=== PATIENT | female | born 1955 | race Caucasian/White ===

== ENCOUNTER → 2016-11-19 | Outpatient (CLI) | payer BC, OTHER ==
[~2016-11-19] VITALS: Ht 157.5 cm; Wt 54.0 kg
[~2016-11-19] MED LIST: CLAR1TAB2 PO; COMBAER6 INH; FLON1SPR; NS 1,000 ML IV SCH; PROL60SO SC; PROPOFOL 200 MG/20 ML VIAL As Ordered ONE; ZYRT10CA PO
--- NOTE | 2016-11-19 11:18 | ROOR ---
Patient Name: Yuliana Mayberry Procedure Date: 11/19/2016 10:59 AM Date of : 1955 Age: 60 Room: [facility] Gender: Female Note Status: Finalized Procedure: Colonoscopy to Cecum Indications: Screening for colorectal malignant neoplasm Providers: Bertram Nails MD Referring MD: Hope Grossman Requesting Provider: Medicines: Monitored Anesthesia Care Complications: No immediate complications. Procedure: Pre-Anesthesia Assessment: - The heart rate, respiratory rate, oxygen saturations, blood pressure, adequacy of pulmonary ventilation, and response to care were monitored throughout the procedure. The Colonoscope was introduced through the anus and advanced to the cecum, identified by appendiceal orifice and ileocecal valve. The colonoscopy was performed without difficulty. The patient tolerated the procedure well. The quality of the bowel preparation was excellent. Findings: The perianal and digital rectal examinations were normal. Non-bleeding internal hemorrhoids were found during retroflexion. The hemorrhoids were small and Grade I (internal hemorrhoids that do not prolapse). Scattered small-mouthed diverticula were found in the recto-sigmoid colon, sigmoid colon and descending colon. The exam was otherwise without abnormality on direct and retroflexion views. Impression: - Non-bleeding internal hemorrhoids. - Diverticulosis in the recto-sigmoid colon, in the sigmoid colon and in the descending colon. - The examination was otherwise normal on direct and retroflexion views. - No specimens collected. - The exam was otherwise normal to the cecum. Recommendation: - Patient has a contact number available for emergencies. The signs and symptoms of potential delayed complications were discussed with the patient. Return to normal activities tomorrow. Written discharge instructions were provided to the patient. - High fiber diet. - Discharge patient to home. - Continue present medications. - Repeat colonoscopy in 10 years for screening purposes. - Return to referring physician. - The findings and recommendations were discussed with the patient's family. Bertram Nails MD Bertram Nails MD 11/19/2016 11:18:02 AM This report has been signed electronically. Number of Addenda: 0 Note Initiated On: 11/19/2016 10:59 AM Estimated Blood Loss: Estimated blood loss: none.
[2016-11-19 11:35] VITALS: BP 145/77
== END | disposition home or self-care (01) ==
LOC: M OPP 10:33
PROVIDERS: ATTEND Internal Medicine Gastroenterology
DX: Z12.11 Encounter for screening for malignant neoplasm of colon (principal); K64.0 First degree hemorrhoids; K57.30 Diverticulosis of large intestine without perforation or abscess without bleeding; J44.9 Chronic obstructive pulmonary disease, unspecified; F17.200 Nicotine dependence, unspecified, uncomplicated; F17.228 Nicotine dependence, chewing tobacco, with other nicotine-induced disorders; Z79.899 Other long term (current) drug therapy
CPT/HCPCS: 99156; G0121

== ENCOUNTER → 2017-08-13 | Outpatient (REF) | payer OTHER ==
[~2017-08-13] MED LIST changes: -NS 1,000 ML IV SCH; -PROPOFOL 200 MG/20 ML VIAL As Ordered ONE
[2017-08-13 12:59] LABS: BASO # 0.1 10^3/uL (0.0-0.2); BASO % 1.1 % (0.0-1.0); EOS # 0.3 10^3/uL (0.0-0.50); EOS % 3.7 % (0.0-3.0); IMMATURE GRANULOCYTE % 0.1 % (0-0); LYMPH # 1.9 10^3/uL (1.5-4.5); LYMPH % 23.4 % (24.0-44.0); MEAN CORPUSCULAR HEMOGLOBIN 34.4 pg (27.0-33.0); MEAN CORPUSCULAR HGB CONC 34.3 g/dl (32.0-36.5); MEAN CORPUSCULAR VOLUME 100.2 fl (80.0-96.0); MONO # 0.6 10^3/uL (0.0-0.8); MONO % 7.1 % (0.0-5.0); NEUTROPHILS # 5.3 10^3/uL (1.8-7.7); NEUTROPHILS % 64.6 % (36.0-66.0); PLATELET COUNT, AUTOMATED 222 10^3/uL (150-450); RED CELL DISTRIBUTION WIDTH 12.1 % (11.5-14.5); WHITE BLOOD COUNT 8.2 10^3/uL (4.0-10.0)
[2017-08-13 13:38] LABS: ALBUMIN/GLOBULIN RATIO 1.25 (1.00-1.93); ALKALINE PHOSPHATASE 75 U/L (45-117); ALT/SGPT 28 U/L (12-78); ANION GAP 6 MEQ/L (8-16); AST/SGOT 22 U/L (7-37); BILIRUBIN,TOTAL 0.8 MG/DL (0.2-1.0); BLOOD UREA NITROGEN 9 MG/DL (7-18); CALCIUM LEVEL 9.3 MG/DL (8.8-10.2); CARBON DIOXIDE LEVEL 31 MEQ/L (21-32); CHLORIDE LEVEL 104 MEQ/L (98-107); CHOLESTEROL LEVEL 220 MG/DL (<200); CREATININE FOR GFR 0.69 MG/DL (0.55-1.02); FREE T4 1.11 NG/DL (0.76-1.46); GLOMERULAR FILTRATION RATE > 60.0 (>45); GLUCOSE, FASTING 82 MG/DL (80-110); POTASSIUM SERUM 4.2 MEQ/L (3.5-5.1); SODIUM LEVEL 141 MEQ/L (136-145); TOTAL PROTEIN 7.2 GM/DL (6.4-8.2); TRIGLYCERIDES LEVEL 57 MG/DL (<150)
== END ==
LOC: M SFHCPLAZ 08:10
PROVIDERS: ATTEND Physician Assistant Medical
DX: E78.00 Pure hypercholesterolemia, unspecified (principal); J30.9 Allergic rhinitis, unspecified; M81.0 Age-related osteoporosis without current pathological fracture

== ENCOUNTER → 2017-10-21 | Outpatient (REF) | payer OTHER ==
[2017-10-21 11:54] LABS: BASO # 0.1 10^3/uL (0.0-0.2); BASO % 0.8 % (0.0-1.0); EOS # 0.3 10^3/uL (0.0-0.50); EOS % 4.6 % (0.0-3.0); HEMATOCRIT 39.7 % (36.0-47.0); HEMOGLOBIN 13.9 g/dl (12.0-16.0); IMMATURE GRANULOCYTE % 0.1 % (0-0); LYMPH # 2.4 10^3/uL (1.5-4.5); LYMPH % 32.2 % (24.0-44.0); MEAN CORPUSCULAR HEMOGLOBIN 34.4 pg (27.0-33.0); MEAN CORPUSCULAR VOLUME 98.3 fl (80.0-96.0); MONO # 0.6 10^3/uL (0.0-0.8); MONO % 7.5 % (0.0-5.0); NEUTROPHILS % 54.8 % (36.0-66.0); PLATELET COUNT, AUTOMATED 209 10^3/uL (150-450); RED BLOOD COUNT 4.04 10^6/uL (4.00-5.40); RED CELL DISTRIBUTION WIDTH 11.9 % (11.5-14.5); WHITE BLOOD COUNT 7.4 10^3/uL (4.0-10.0)
[2017-10-21 12:26] LABS: ALBUMIN 4.2 GM/DL (3.2-5.2); ALKALINE PHOSPHATASE 76 U/L (45-117); ALT/SGPT 29 U/L (12-78); ANION GAP 8 MEQ/L (8-16); AST/SGOT 22 U/L (7-37); BILIRUBIN,TOTAL 0.7 MG/DL (0.2-1.0); BLOOD UREA NITROGEN 9 MG/DL (7-18); CARBON DIOXIDE LEVEL 27 MEQ/L (21-32); CHLORIDE LEVEL 107 MEQ/L (98-107); CHOLESTEROL LEVEL 154 MG/DL (<200); CHOLESTEROL RISK RATIO 2.264 (<5); CREATININE FOR GFR 0.67 MG/DL (0.55-1.30); GLOMERULAR FILTRATION RATE > 60.0 (>45); GLUCOSE, FASTING 92 MG/DL (70-100); HDL CHOLESTEROL 68 MG/DL (>40); LDL CHOLESTEROL 72.6 MG/DL (<100); NON-HDL-C 86 MG/DL; POTASSIUM SERUM 4.3 MEQ/L (3.5-5.1); SODIUM LEVEL 142 MEQ/L (136-145); TRIGLYCERIDES LEVEL 67 MG/DL (<150)
== END ==
LOC: M SFHCPLAZ 09:16
DX: J30.9 Allergic rhinitis, unspecified (principal); E78.00 Pure hypercholesterolemia, unspecified
CPT/HCPCS: 80053

== ENCOUNTER → 2017-12-09 | Outpatient (REF) | payer OTHER | LOC: M SFHCWAGY 15:33 | DX: Z12.4 Encounter for screening for malignant neoplasm of cervix (principal) ==

== ENCOUNTER → 2017-12-09 | Outpatient (CLI) | payer BC | LOC: M WHC 14:58 | DX: Z12.31 Encounter for screening mammogram for malignant neoplasm of breast (principal) | CPT/HCPCS: 77067 ==

== ENCOUNTER → 2018-08-23 | Outpatient (CLI) | payer BC, OTHER | LOC: M RAD 12:40 | DX: Z12.2 Encounter for screening for malignant neoplasm of respiratory organs (principal); F17.218 Nicotine dependence, cigarettes, with other nicotine-induced disorders; J84.10 Pulmonary fibrosis, unspecified; Z98.82 Breast implant status | CPT/HCPCS: G0297 ==

== ENCOUNTER → 2018-08-26 | Outpatient (REF) | payer OTHER ==
[2018-08-26 12:11] LABS: BASO # 0.1 10^3/uL (0.0-0.2); BASO % 0.9 % (0.0-1.0); EOS # 0.2 10^3/uL (0.0-0.50); EOS % 2.5 % (0.0-3.0); HEMOGLOBIN 14.6 g/dl (12.0-15.5); IMMATURE GRANULOCYTE % 0.4 % (0-3.0); LYMPH # 1.8 10^3/uL (1.5-4.5); LYMPH % 24.5 % (24.0-44.0); MEAN CORPUSCULAR HEMOGLOBIN 34.3 pg (27.0-33.0); MEAN CORPUSCULAR HGB CONC 34.8 g/dl (32.0-36.5); MEAN CORPUSCULAR VOLUME 98.6 fl (80.0-96.0); MONO # 0.6 10^3/uL (0.0-0.8); MONO % 8.6 % (0.0-5.0); NEUTROPHILS # 4.7 10^3/uL (1.8-7.7); NEUTROPHILS % 63.1 % (36.0-66.0); PLATELET COUNT, AUTOMATED 210 10^3/uL (150-450); RED BLOOD COUNT 4.26 10^6/uL (4.00-5.40); RED CELL DISTRIBUTION WIDTH 12.4 % (11.5-14.5); WHITE BLOOD COUNT 7.5 10^3/uL (4.0-10.0)
[2018-08-26 12:25] LABS: ALBUMIN 4.1 GM/DL (3.2-5.2); ALBUMIN/GLOBULIN RATIO 1.32 (1.00-1.93); ALKALINE PHOSPHATASE 68 U/L (45-117); ALT/SGPT 23 U/L (12-78); ANION GAP 6 MEQ/L (8-16); AST/SGOT 18 U/L (7-37); BILIRUBIN,TOTAL 0.6 MG/DL (0.2-1.0); BLOOD UREA NITROGEN 13 MG/DL (7-18); CALCIUM LEVEL 9.1 MG/DL (8.8-10.2); CARBON DIOXIDE LEVEL 30 MEQ/L (21-32); CHLORIDE LEVEL 104 MEQ/L (98-107); CHOLESTEROL LEVEL 225 MG/DL (<200); CREATININE FOR GFR 0.76 MG/DL (0.55-1.30); FREE T4 1.07 NG/DL (0.76-1.46); GLOMERULAR FILTRATION RATE > 60.0 (>45); GLUCOSE, FASTING 105 MG/DL (70-100); HDL CHOLESTEROL 69 MG/DL (>40); LDL CHOLESTEROL 144 MG/DL (<100); NON-HDL-C 156 MG/DL; POTASSIUM SERUM 4.3 MEQ/L (3.5-5.1); SODIUM LEVEL 140 MEQ/L (136-145); TOTAL PROTEIN 7.2 GM/DL (6.4-8.2); TRIGLYCERIDES LEVEL 59 MG/DL (<150)
== END ==
LOC: M SFHCPLAZ 09:28
DX: E78.00 Pure hypercholesterolemia, unspecified (principal); J84.10 Pulmonary fibrosis, unspecified; R63.4 Abnormal weight loss
CPT/HCPCS: 84443

== ENCOUNTER → 2018-12-22 | Outpatient (REF) | payer MEDICARE, OTHER | LOC: M SFHCWAGY 15:03 | PROVIDERS: ATTEND Nurse Practitioner Family | DX: Z12.4 Encounter for screening for malignant neoplasm of cervix (principal) ==

== ENCOUNTER → 2018-12-22 | Outpatient (CLI) | payer MEDICARE, BC ==
--- NOTE | 2018-12-24 13:55 | DEXA ---
AP SPINE L1 - L4 0.963 -1.9 -0.3 LT FEMUR TOTAL 0.794 -1.7 -0.5 LT NECK 0.770 -1.9 -0.5 RT FEMUR TOTAL 0.742 -2.1 -0.9 RT NECK 0.680 -2.6 -1.1 TOTAL BODY TOTAL OTHER COMMENTS: There is low bone density of the spine. There is low bone density of the left hip. There is osteoporosis of the right hip The density of the spine has increased 9.6% since 08/21/2016. The density of the left hip has increased 7.7% since 08/21/2016. The density of the right hip has increased 4.1% since 08/21/2016. FOLLOW-UP: Recommendation for the next bone density exam: 2 years. CHRISTINA
== END ==
LOC: M WHC 14:57
PROVIDERS: ATTEND Physician Assistant Medical
DX: Z12.31 Encounter for screening mammogram for malignant neoplasm of breast (principal); M81.0 Age-related osteoporosis without current pathological fracture; Z12.4 Encounter for screening for malignant neoplasm of cervix; Z98.890 Other specified postprocedural states
CPT/HCPCS: 77063; 77067; 77080; G0101; G0123

== ENCOUNTER → 2018-12-22 | Outpatient (CLI) | payer MEDICARE, BC ==
--- NOTE | 2018-12-22 16:12 | REPMRS ---
Patient History The patient states she had a clinical breast exam in 12/2018. No known family history of cancer. Implants in both breasts, 2009. Digital Woman Screen Mammo: December 22, 2018 - Exam #: [id number] Bilateral CC and MLO view(s) were taken. Technologist: Kaleigh Hinson, Technologist Prior study comparison: December 09, 2017, digital woman screen mammo performed at [facility]. May 15, 2016, digital woman screen mammo performed at [facility]. September 15, 2013, digital woman screen mammo performed at [facility]. FINDINGS: The breast tissue is heterogeneously dense. This may lower the sensitivity of mammography. The visualized implant margins are smooth. Breast parenchymal density pattern is essentially symmetric. No dominant mass, clustered microcalcification, or architectural distortion is evident on either side. 3-D tomosynthesis shows no additional findings. No significant changes when compared with prior studies. Assessment: BI-RADS/ACR category 2 mammogram. Benign Findings. Recommendation Routine screening mammogram of both breasts in 1 year (for women over age 40). This patient's Lifetime Breast Cancer RIsk is estimated at 6.7 %. This mammogram was interpreted with the aid of an FDA-approved computer-aided dectection system. Electronically Signed By: Handy Chun MD 12/22/18 [id number]
== END ==
LOC: M WHC 14:51
PROVIDERS: ATTEND Nurse Practitioner Family
DX: Z12.31 Encounter for screening mammogram for malignant neoplasm of breast (principal); Z98.890 Other specified postprocedural states

== ENCOUNTER → 2018-12-31 | Outpatient (REF) | payer MEDICARE, OTHER ==
[2018-12-31 12:21] LABS: BASO # 0.1 10^3/uL (0.0-0.2); EOS # 0.4 10^3/uL (0.0-0.50); EOS % 5.8 % (0.0-3.0); HEMATOCRIT 41.8 % (36.0-47.0); HEMOGLOBIN 14.4 g/dl (12.0-15.5); LYMPH # 2.1 10^3/uL (1.5-4.5); LYMPH % 35.4 % (24.0-44.0); MEAN CORPUSCULAR HEMOGLOBIN 34.4 pg (27.0-33.0); MEAN CORPUSCULAR HGB CONC 34.4 g/dl (32.0-36.5); MEAN CORPUSCULAR VOLUME 99.8 fl (80.0-96.0); MONO # 0.5 10^3/uL (0.0-0.8); MONO % 8.4 % (0.0-5.0); NEUTROPHILS % 49.2 % (36.0-66.0); PLATELET COUNT, AUTOMATED 223 10^3/uL (150-450); RED BLOOD COUNT 4.19 10^6/uL (4.00-5.40)
[2018-12-31 14:18] LABS: ALBUMIN 4.1 GM/DL (3.2-5.2); ALT/SGPT 23 U/L (12-78); BILIRUBIN,TOTAL 0.5 MG/DL (0.2-1.0); BLOOD UREA NITROGEN 13 MG/DL (7-18); CALCIUM LEVEL 9.2 MG/DL (8.8-10.2); CARBON DIOXIDE LEVEL 27 MEQ/L (21-32); CHLORIDE LEVEL 106 MEQ/L (98-107); CHOLESTEROL LEVEL 215 MG/DL (<200); CHOLESTEROL RISK RATIO 3.257 (<5); CREATININE FOR GFR 0.83 MG/DL (0.55-1.30); GLOMERULAR FILTRATION RATE > 60.0 (>45); GLUCOSE, FASTING 92 MG/DL (70-100); HDL CHOLESTEROL 66 MG/DL (>40); LDL CHOLESTEROL 138 MG/DL (<100); NON-HDL-C 149 MG/DL; POTASSIUM SERUM 4.5 MEQ/L (3.5-5.1); PTH INTACT 65.5 PG/ML (18.5-88.0); SODIUM LEVEL 139 MEQ/L (136-145); TOTAL 25(OH) VITAMIN D 13.8 NG/ML (30.0-100.0); TOTAL PROTEIN 6.9 GM/DL (6.4-8.2); TRIGLYCERIDES LEVEL 54 MG/DL (<150)
== END ==
LOC: M SFHCPLAZ 08:48
PROVIDERS: ATTEND Physician Assistant Medical
DX: M81.0 Age-related osteoporosis without current pathological fracture (principal); E78.00 Pure hypercholesterolemia, unspecified; J44.9 Chronic obstructive pulmonary disease, unspecified

== ENCOUNTER → 2019-09-13 | Outpatient (REF) | payer MEDICARE, OTHER ==
[2019-09-13 16:25] LABS: BLOOD UREA NITROGEN 8 MG/DL (7-18); CALCIUM LEVEL 9.8 MG/DL (8.8-10.2); CARBON DIOXIDE LEVEL 29 MEQ/L (21-32); CHLORIDE LEVEL 104 MEQ/L (98-107); CREATININE FOR GFR 0.82 MG/DL (0.55-1.30); GLOMERULAR FILTRATION RATE > 60.0 (>45); GLUCOSE, FASTING 94 MG/DL (70-100); MAGNESIUM LEVEL 2.2 MG/DL (1.8-2.4); PHOSPHORUS LEVEL 3.5 MG/DL (2.5-4.9); POTASSIUM SERUM 4.1 MEQ/L (3.5-5.1); SODIUM LEVEL 140 MEQ/L (136-145)
[2019-09-13 16:39] LABS: TOTAL 25(OH) VITAMIN D 51.7 NG/ML (30.0-100.0)
== END ==
LOC: M SFHCPLAZ 13:58
PROVIDERS: ATTEND Family Medicine
DX: M81.0 Age-related osteoporosis without current pathological fracture (principal)
CPT/HCPCS: 36415; 80048; 82306; 83735; 84100; 90682; 96372; G0008; G0463; J0897

== ENCOUNTER → 2019-10-04 | Outpatient (CLI) | payer MEDICARE, BC, OTHER ==
--- NOTE | 2019-10-04 14:14 | REP ---
Low-dose lung screening CT of the chest: The study is performed without IV contrast. The images are presented at lung windowing only. Comparisons are the chest CT studies of 08/23/2018, 07/17/2016. There are no lung masses or nodules. There are no infiltrates or pleural effusions. There is stable bilateral curvilinear parenchymal scarring, unchanged from both prior studies. Bilateral breast implants are again identified, unchanged from both prior studies. Impression: Category one low-dose lung screening CT of the chest. The probability of malignancy is less than 1%. Depending on risk factors, consider annual follow-up low-dose lung screening CT. Electronically Signed by Adis Patel MD 10/04/2019 02:06 P
== END ==
LOC: M RAD 12:49
PROVIDERS: ATTEND Internal Medicine Pulmonary Disease
DX: Z12.2 Encounter for screening for malignant neoplasm of respiratory organs (principal); Z87.891 Personal history of nicotine dependence; Z98.82 Breast implant status

== ENCOUNTER → 2020-06-07 | Outpatient (CLI) | payer MEDICARE, BC, OTHER ==
[2020-06-07 13:28] LABS: ALT/SGPT 23 U/L (12-78); BILIRUBIN,TOTAL 0.5 MG/DL (0.2-1.0); BLOOD UREA NITROGEN 8 MG/DL (7-18); CALCIUM LEVEL 9.2 MG/DL (8.8-10.2); CARBON DIOXIDE LEVEL 29 MEQ/L (21-32); CHLORIDE LEVEL 108 MEQ/L (98-107); CHOLESTEROL LEVEL 167 MG/DL (<200); CHOLESTEROL RISK RATIO 2.385 (<5); CREATININE FOR GFR 0.78 MG/DL (0.55-1.30); GLOMERULAR FILTRATION RATE > 60.0 (>45); GLUCOSE, FASTING 101 MG/DL (70-100); HDL CHOLESTEROL 70 MG/DL (>40); LDL CHOLESTEROL 89 MG/DL (<100); NON-HDL-C 97 MG/DL; POTASSIUM SERUM 5.4 MEQ/L (3.5-5.1); SODIUM LEVEL 140 MEQ/L (136-145); TOTAL PROTEIN 6.8 GM/DL (6.4-8.2); TRIGLYCERIDES LEVEL 41 MG/DL (<150)
[2020-06-07 13:44] LABS: HEMOGLOBIN A1c 5.4 %
== END ==
LOC: M PLALAB 09:02
PROVIDERS: ATTEND Family Medicine
DX: Z13.1 Encounter for screening for diabetes mellitus (principal); Z13.220 Encounter for screening for lipoid disorders

== ENCOUNTER → 2020-06-26 | Outpatient (CLI) | payer MEDICARE, BC, OTHER ==
[2020-06-26 15:39] LABS: BLOOD UREA NITROGEN 7 MG/DL (7-18); CALCIUM LEVEL 9.3 MG/DL (8.8-10.2); CARBON DIOXIDE LEVEL 28 MEQ/L (21-32); CHLORIDE LEVEL 107 MEQ/L (98-107); CREATININE FOR GFR 0.75 MG/DL (0.55-1.30); GLOMERULAR FILTRATION RATE > 60.0 (>45); GLUCOSE, FASTING 86 MG/DL (70-100); POTASSIUM SERUM 4.1 MEQ/L (3.5-5.1); SODIUM LEVEL 140 MEQ/L (136-145)
== END ==
LOC: M PLALAB 13:57
PROVIDERS: ATTEND Family Medicine
DX: E87.5 Hyperkalemia (principal)

== ENCOUNTER → 2020-10-15 | Outpatient (CLI) | payer MEDICARE, BC, OTHER ==
--- NOTE | 2020-10-15 15:52 | REP ---
INDICATION: NICOTINE DEPENDENCE. COMPARISON: Comparison is made with multiple prior CT studies of the chest, the most recent which is from 04 October 2019. The most remote of these prior studies is 09 April 2016.. TECHNIQUE: Low-dose helical scanning. 3 mm axial images at lung only windows. FINDINGS: Digital preliminary retail director radiograph shows some overall hyperinflation. There is a right middle lobe, lingular, and bilateral lower lobe linear fibrosis again noted unchanged. Loops of left colon is seen posterior and to the spleen at the level of the dome of the diaphragm. This is unchanged and considered an anatomic variant. Breast augmentation implants are again noted. No endobronchial lesion is seen. Some vascular calcifications noted. No pulmonary nodule or mass lesion is observed. IMPRESSION: Stable lung RADS category 2 findings. Repeat screening exam suggested in 1 year. <Electronically signed by Handy Chun > 10/15/20 [id number]
== END ==
LOC: M RAD 13:33
PROVIDERS: ATTEND Internal Medicine Pulmonary Disease
DX: Z12.2 Encounter for screening for malignant neoplasm of respiratory organs (principal); F17.218 Nicotine dependence, cigarettes, with other nicotine-induced disorders; J84.10 Pulmonary fibrosis, unspecified; Z98.82 Breast implant status

== ENCOUNTER 2020-11-03 11:04 | Emergency (ER) | payer MEDICARE, BC, OTHER ==
[~2020-11-03] VITALS: Ht 154.9 cm; Wt 54.8 kg
[2020-11-03 11:05] VITALS: BP 154/90
--- OUTSIDE RECORDS SUMMARY | 2020-11-03 11:09 | CCD ---
Author Author [facility] Organization [facility] Address Unknown Phone Unavailable Care Team Providers Care Fur Glazer Name Role Phone Shantelle Madera Unavailable PROBLEMS Type Condition ICD9-CM Code HMI19-QB Code Onset Dates Condition S tatus SNOMED Code Notes Problem Cigarette nicotine dependence in remission F17.211 Active 165092307 Problem Mixed hyperlipidemia E78.2 Active 165435394 Problem Allergic rhinitis, unspecifi ed allergic rhinitis trigger, unspecified rhinitis seasonality J30.9 Active 16423107 Problem Chronic obstructive pulmonary disease, unspecified COPD ty pe J44.9 Active 77909182 Problem Pulmonary fibrosis J84.10 Active 42519696 Problem Age-related osteoporosis without current pathological fracture M81.0 Active 95067490 ALLERGIES No Known Allergies ENCOUNTERS from 1955 to 2020-10-08 Encounter Location Date Provider Diagnosis [address] [id number] Sep, Shantelle Madera Mixed hyperlipidemia E78.2 IMMUNIZATIONS Vaccine Route Administration Date Status Prolia 60mg/1mL (Denosumab) IM Intramuscular Sep 13, 2019 Adm inistered Prolia 60mg/1mL (Denosumab) SC Subcutaneous February 24, 2019 Admi nistered Influenza (18 yrs & older) Flublok IM Intramuscular Aug 26, 2018 Administered Prolia 60mg/1mL (Denosumab) SC Subcutaneous Aug 26, 2018 Admi nistered Prolia 60mg/1mL (Denosumab) SC Subcutaneous February 24, 2018 Admi nistered Prolia 60mg/1mL (Denosumab) SC Subcutaneous Aug 20, 2017 Admi nistered Influenza (18 yrs & older) Flublok IM Intramuscular Sep 13, 2019 Administered Prolia 60mg/1mL (Denosumab) Unknown Apr 20, 2017 Pend ing Prolia 60mg/1mL (Denosumab) SC Subcutaneous Oct 20, 2016 Admi nistered Influenza (6mo & up) Fluzone Unknown Jul 21, 2017 Adm inistered SOCIAL HISTORY Tobacco Use: Social History Observation Description Date Details (start date - stop date) Former Smoker Sex Assigned At : Social History Observation Description Sex Assigned At Unknown Education: Question Answer Notes Level of Education: High School Audit Question Answer Notes Total Score: 1 Interpretation: Alcohol Education Language: Question Answer Notes Languages spoken: Turkish Rastafarian: Question Answer Notes Rastafarian 13 Faith Sexual Hx: Question Answer Notes Had sex in the last 12 months (vaginal, oral, or anal)? No Have you ever had an STD? No Drug and Alcohol Question Answer Notes Total Score: 0 Interpretation: No problems reported Alcohol Screening: Question Answer Notes Did you have a drink containing alcohol in the past year? Ye s Points 1 Interpretation Negative How often did you have six or more drinks on one occas ion in the past year? Never (0 points) How many drinks did you have on a typica l day when you were drinking in the past year? 1 or 2 (0 points) How often did you have a drink containing alcohol in t he past year? Monthly or less (1 point) Tobacco Use: Question Answer Notes Are you a: former smoker Smoking Cessation Information Given 07/29/2016 How long has it been since you last smoked? 3-6 months REASON FOR REFERRAL No Information VITAL SIGNS No information MEDICATIONS Medication SIG (Take, Route, Frequency, Duration) Notes Start Da te End Date Status Prolia 60 MG/ML Subcutaneous Active Claritin 10 MG 1 tablet Orally Once a day as needed Active Spiriva HandiHaler 18 MCG 1 capsule Inhalation Once a day Active Flonase 50 MCG/ACT 2 spray in each nostril Nasally Once a day as nee ded Active Albuterol Sulfate 108 (90 Base) MCG/ACT 1 puff as needed Inh alation every 4 hrs Active Calcium Carbonate Antacid 600 MG 2 tablet Orally bid 2018 Active Vitamin D 400 UNIT/ML 800unit/ml Orally Once a day Dec, Active Lipitor 20 MG 1 tablet Orally Once a day for 90 days Active PROCEDURES No Information RESULTS No Results REASON FOR VISIT refill MEDICAL (GENERAL) HISTORY Type Description Date Medical History Idiopathic Pulmonary Fibrosi s c mild concomitant COPD Golds stage II - Dr. Qiu Medical History Allergic rhinitis Medical History Internal non bleeding hemorr hoids 11/2016 on Colonoscopy - Dr. Leone Medical History Osteoporosis FRAX 13.7/4 on DEXA 10/20/2016; Frax 11/3 on repeat Dexa 12/2018 Medical History Hyperlipidemia Medical History Tobacco use LDLCT 08/2018 cat 2 Surgical History fibroid tumors removed, appendectomy as well 1995 Surgical History right breast needle bx./benign 2000? Surgical History Colonoscopy - hemorrhoids n onbleeding, diverticulosis - Dr. Nails, repeatin 10 years 11/2016 Goals Section No Information Health Concerns No Information MEDICAL EQUIPMENT No Information MENTAL STATUS No Information FUNCTIONAL STATUS No Information ASSESSMENTS Encounter Date Diagnosis Assessment Notes Treatment Notes Treatm ent Clinical Notes Sep, Mixed hyperlipidemia (ICD-10 - E78.2) PLAN OF TREATMENT Medication Medication Name Sig Start Date Stop Date Prolia 60 MG/ML Subcutaneous Calcium Carbonate Antacid 600 MG 2 tablet Orally bid Dec, 9 Vitamin D 400 UNIT/ML 800unit/ml Orally Once a day Dec, Albuterol Sulfate 108 (90 Base) MCG/ACT 1 puff as needed Inh alation every 4 hrs Claritin 10 MG 1 tablet Orally Once a day as needed Spiriva HandiHaler 18 MCG 1 capsule Inhalation Once a day Flonase 50 MCG/ACT 2 spray in each nostril Nasally Once a day a s needed Lipitor 20 MG 1 tablet Orally Once a day for 90 days Next Appt Details Provider Name:Shantelle Pryor Santy, 2020-11-27 02:30:00 PM, [address] [place] [address], [id number], Provider Name:Shantelle Pryor Santy, 2020-11-27 02:30:00 PM, [address] [place], [id number], Insurance Providers Payer Name Payer Address Payer Phone Insured Name Patient Relati onship to Insured Coverage Start Date Coverage End Date MEDICARE Part A and B [address] [facility] [id number] [phone] CRISTOPHER ERNANDEZ I [facility] [address] [facility] [id number] CRISTOPHER ERNANDEZ I self
--- OUTSIDE RECORDS SUMMARY | 2020-11-03 11:09 | CCD ---
Author Author [facility] Organization [facility] Address Unknown Phone Unavailable Care Team Providers Care Sample Grader Name Role Phone Sarwat Qui MD Unavailable Unavailable Sarwat Qiu MD Unavailable Unavailable Sarwat Qiu MD Unavailable Unavailable Sarwat Qiu MD Unavailable Unavailable Sarwat Qiu MD Unavailable Unavailable Sarwat Qiu MD Unavailable Unavailable Sarwat Qiu MD Unavailable Unavailable Sarwat Qiu MD Unavailable Unavailable Sarwat Qiu MD Unavailable Unavailable Sarwat Qiu MD Unavailable Unavailable Sarwat Qiu MD Unavailable Unavailable Sarwat Qiu MD Unavailable Unavailable Sarwat Qiu MD Unavailable Unavailable Sarwat Qiu MD Unavailable Unavailable Sarwat Qiu MD Unavailable Unavailable Sarwat Qiu MD Unavailable Unavailable Sarwat Qiu MD Unavailable Unavailable Sarwat Qiu MD Unavailable Unavailable Qiu, Sarwat Mehdi MD Unavailable Unavailable Qiu, Sarwat Mehdi MD Unavailable Unavailable Qiu, Sarwat Mehdi MD Unavailable Unavailable Qiu, Sarwat Mehdi MD Unavailable Unavailable Qiu, Sarwat Mehdi MD Unavailable Unavailable Qiu, Sarwat Mehdi MD Unavailable Unavailable Qiu, Sarwat Mehdi MD Unavailable Unavailable Qiu, Sarwat Mehdi MD Unavailable Unavailable Qiu, Sarwat Mehdi MD Unavailable Unavailable Qiu, Sarwat Mehdi MD Unavailable Unavailable Qiu, Sarwat Mehdi MD Unavailable Unavailable Qiu, Sarwat Mehdi MD Unavailable Unavailable Qiu, Sarwat Mehdi MD Unavailable Unavailable Qiu, Sarwat Mehdi MD Unavailable Unavailable Qiu, Sarwat Mehdi MD Unavailable Unavailable Qiu, Sarwat Mehdi MD Unavailable Unavailable Qiu, Sarwat Mehdi MD Unavailable Unavailable Qiu, Sarwat Mehdi MD Unavailable Unavailable Qiu, Sarwat Mehdi MD Unavailable Unavailable Qiu, Sarwat Mehdi MD Unavailable Unavailable Qiu, Sarwat Mehdi MD Unavailable Unavailable Qiu, Sarwat Mehdi MD Unavailable Unavailable Qiu, Sarwat Mehdi MD Unavailable Unavailable Qiu, Sarwat Mehdi MD Unavailable Unavailable Qiu, Sarwat Mehdi MD Unavailable Unavailable Qiu, Sarwat Mehdi MD Unavailable Unavailable Qiu, Sarwat Mehdi MD Unavailable Unavailable Qiu, Sarwat Mehdi MD Unavailable Unavailable Qiu, Sarwat Mehdi MD Unavailable Unavailable Qiu, Sarwat Mehdi MD Unavailable Unavailable Qiu, Sarwat Mehdi MD Unavailable Unavailable Qiu, Sarwat Mehdi MD Unavailable Unavailable Qiu, Sarwat Mehdi MD Unavailable Unavailable Re-disclosure Warning The records that you are about to access may contain information from federally-assisted alcohol or drug abuse programs. If such information is present, then the following federally mandated warning applies: This information has been disclosed to you from records protected by federal confidentiality rules (42 CFR part 2). The federal rules prohibit you from making any further disclosure of this information unless further disclosure is expressly permitted by the written consent of the person to whom it pertains or as otherwise permitted by 42 CFR part 2. A general authorization for the release of medical or other information is NOT sufficient for this purpose. The Federal rules restrict any use of the information to criminally investigate or prosecute any alcohol or drug abuse patient.The records that you are about to access may contain highly sensitive health information, the redisclosure of which is protected by Article 27-F of the [facility] Public Health law. If you continue you may have access to information: Regarding HIV / AIDS; Provided by facilities licensed or operated by the [facility] Office of Mental Health; or Provided by the [facility] Office for People With Developmental Disabilities. If such information is present, then the following [facility] mandated warning applies: This information has been disclosed to you from confidential records which are protected by state law. State law prohibits you from making any further disclosure of this information without the specific written consent of the person to whom it pertains, or as otherwise permitted by law. Any unauthorized further disclosure in violation of state law may result in a fine or residential sentence or both. A general authorization for the release of medical or other information is NOT sufficient authorization for further disc losure. Family History Family Member Name Family Member Gender Family Member Status Date o f Status Description Data Source(s) Unknown Unknown Problem MEDENT ([facility], ) Unknown Male Problem MEDENT ([facility] () Unknown Female Problem MEDENT ([facility]) Encounters Encounter Providers Location Date Indications Data Source(s ) Unknown [address] [facility] [address] 10/08/2020 12:00:00 AM EST eCW1 ([facility]) [address] [place] [address] 03/15/2020 12:00:00 AM EDT eCW1 ([facility]) [address] [place] [address] 11/23/2019 12:00:00 AM EDT eCW1 ([facility]) Outpatient Referrer: Mehdi Qiu MD 10/07/2019 02:30:0 0 PM EST [facility] [address] [address] 09/13/2019 12:00:00 AM EST eCW1 ([facility]) Immunizations Vaccine Date Status Description Data Source(s) INFLUENZA VACCINE QUADRIVALENT (65 YR UP)/MF59 C.1/PF 07/18/2020 12:00:00 AM EST completed [facility] Prolia 60mg/1mL (Denosumab) 09/13/2019 02:21:00 PM EST completed eCW1 ([facility]) Prolia 60mg/1mL (Denosumab) 09/13/2019 02:21:00 PM EST completed eCW1 ([facility]) influenza, recombinant, quadrIvalent,injectable, prese rvative free 09/13/2019 02:20:00 PM EST completed eCW1 ([facility]) influenza, recombinant, quadrIvalent,injectable, prese rvative free 09/13/2019 02:20:00 PM EST completed eCW1 ([facility]) Medications Medication Brand Name Start Date Product Form Dose Route Admi nistrative Instructions Pharmacy Instructions Status Indications Reaction Description Data Source(s) atorvastatin 20 MG Oral Tablet ATORVASTATIN CALCIUM 10/08/2020 1 2:00:00 AM EST tablet 90 TAKE ONE TABLET BY MOUTH EVERY D AY TAKE ONE TABLET BY MOUTH EVERY DAY SOLD: 10/09/2020 [facility] 90 mcg/actuation 03/14/2020 12:00:00 AM EDT HFA aerosol inha ler 17 INHALE TWO PUFFS BY MOUTH FOUR TIMES A DAY NEEDED INHALE TWO PUFFS BY MOUTH FOUR TIMES A DAY NEEDED SOLD: 03/22/2020 [facility] 90 mcg/actuation 03/14/2020 12:00:00 AM EDT HFA aerosol inha ler 17 INHALE TWO PUFFS BY MOUTH FOUR TIMES A DAY NEEDED INHALE TWO PUFFS BY MOUTH FOUR TIMES A DAY NEEDED SOLD: 06/16/2020 [facility] 2.5 mcg/actuation 02/27/2020 12:00:00 AM EDT mist 4 INHALE 2 PUFFS BY MOUTH EVERY DAY INHALE 2 PUFFS BY MOUTH EVERY DAY SOLD: 08/15/2020 [facility] 2.5 mcg/actuation 02/27/2020 12:00:00 AM EDT mist 4 INHALE 2 PUFFS BY MOUTH EVERY DAY INHALE 2 PUFFS BY MOUTH EVERY DAY SOLD: 03/14/2020 [facility] 2.5 mcg/actuation 02/27/2020 12:00:00 AM EDT mist 4 INHALE 2 PUFFS BY MOUTH EVERY DAY INHALE 2 PUFFS BY MOUTH EVERY DAY SOLD: 09/24/2020 [facility] 2.5 mcg/actuation 02/27/2020 12:00:00 AM EDT mist 4 INHALE 2 PUFFS BY MOUTH EVERY DAY INHALE 2 PUFFS BY MOUTH EVERY DAY SOLD: 04/23/2020 [facility] 2.5 mcg/actuation 02/27/2020 12:00:00 AM EDT mist 4 INHALE 2 PUFFS BY MOUTH EVERY DAY INHALE 2 PUFFS BY MOUTH EVERY DAY SOLD: 06/16/2020 [facility] atorvastatin 20 MG Oral Tablet ATORVASTATIN CALCIUM 11/24/2019 1 2:00:00 AM EDT tablet 30 TAKE ONE TABLET BY MOUTH EVERY D AY TAKE ONE TABLET BY MOUTH EVERY DAY SOLD: 03/14/2020 [facility] atorvastatin 20 MG Oral Tablet ATORVASTATIN CALCIUM 11/24/2019 1 2:00:00 AM EDT tablet 30 TAKE ONE TABLET BY MOUTH EVERY D AY TAKE ONE TABLET BY MOUTH EVERY DAY SOLD: 01/30/2020 [facility] atorvastatin 20 MG Oral Tablet ATORVASTATIN CALCIUM 11/24/2019 1 2:00:00 AM EDT tablet 30 TAKE ONE TABLET BY MOUTH EVERY D AY TAKE ONE TABLET BY MOUTH EVERY DAY SOLD: 04/23/2020 [facility] atorvastatin 20 MG Oral Tablet ATORVASTATIN CALCIUM 11/24/2019 1 2:00:00 AM EDT tablet 30 TAKE ONE TABLET BY MOUTH EVERY D AY TAKE ONE TABLET BY MOUTH EVERY DAY SOLD: 12/27/2019 [facility] atorvastatin 20 MG Oral Tablet ATORVASTATIN CALCIUM 11/24/2019 1 2:00:00 AM EDT tablet 30 TAKE ONE TABLET BY MOUTH EVERY D AY TAKE ONE TABLET BY MOUTH EVERY DAY SOLD: 06/16/2020 [facility] atorvastatin 20 MG Oral Tablet ATORVASTATIN CALCIUM 11/24/2019 1 2:00:00 AM EDT tablet 30 TAKE ONE TABLET BY MOUTH EVERY D AY TAKE ONE TABLET BY MOUTH EVERY DAY SOLD: 11/25/2019 [facility] atorvastatin 20 MG Oral Tablet ATORVASTATIN CALCIUM 06/02/2019 1 2:00:00 AM EDT tablet 30 TAKE ONE TABLET BY MOUTH EVERY D AY TAKE ONE TABLET BY MOUTH EVERY DAY SOLD: 10/14/2019 [facility] 2.5 mcg/actuation 05/14/2019 12:00:00 AM EDT mist 4 INHALE 2 PUFFS BY MOUTH EVERY DAY INHALE 2 PUFFS BY MOUTH EVERY DAY SOLD: 10/14/2019 [facility] 2.5 mcg/actuation 05/14/2019 12:00:00 AM EDT mist 4 INHALE 2 PUFFS BY MOUTH EVERY DAY INHALE 2 PUFFS BY MOUTH EVERY DAY SOLD: 11/23/2019 [facility] 2.5 mcg/actuation 05/14/2019 12:00:00 AM EDT mist 4 INHALE 2 PUFFS BY MOUTH EVERY DAY INHALE 2 PUFFS BY MOUTH EVERY DAY SOLD: 01/30/2020 [facility] 90 mcg/actuation 01/10/2019 12:00:00 AM EDT HFA aerosol inha ler 17 INHALE TWO PUFFS BY MOUTH FOUR TIMES A DAY NEEDED INHALE TWO PUFFS BY MOUTH FOUR TIMES A DAY NEEDED SOLD: 10/14/2019 [facility] Insurance Providers Payer name Policy type / Coverage type Policy ID Covered republican ID Covered republican's relationship to rose Policy Rose Plan Information [facility] DIV [id number] SP [id number] MEDICARE [id number] SP [id number] [facility] [id number] SP [id number] [facility] DIV [id number] [facility] [id number] SP [id number] MEDICARE C [id number] S [id number] [facility] O [id number] S [id number] ANSI-Commercial [id number] ANSI-Medicare Part B [id number] [facility] Part B [id number] Self [id number] [place] Medicare Primary [id number] Self [id number] ANSI-Medicare Part B [id number] ANSI-Commercial [id number] [facility] Part B [id number] Self [id number] [place] Medicare Primary [id number] Self [id number] ANSI-Commercial [id number] ANSI-Medicare Part B [id number] ANSI-Commercial [id number] ANSI-Medicare Part B [id number] [employer] [place] DIV [id number] SP [id number] ANSI-Commercial [id number] [facility] Health Maintenance Organization (HMO) [id number] Self [id number] [employer] DIV [id number] SP [id number] [place] [employer] Health Maintenance Organization (HMO) [id number] Self [id number] [place] [employer] Health Maintenance Organization (HMO) [id number] Self [id number] EMPIR ([facility]) O [id number] S [id number] [facility] [place] [facility] Health Maintenance Organization (HMO) [id number] Self [id number] [facility] [place] [facility] Health Maintenance Organization (HMO) [id number] Self [id number] [facility] [id number] SP [id number] [employer] [place] DIV [id number] SP [id number] [facility] [place] Health Maintenance Organization (HMO) Self [employer] [id number] SP [id number] [employer] [place] DIV [id number] SP [id number] [employer] [facility] [id number] SP [id number] [employer] [place] DIV [id number] SP [id number] [facility] O [id number] S [id number] LONG BRANCH BLUE CROSS BLUE SHIELD - OP [id number] Problems, Conditions, and Diagnoses Code Display Name Description Problem Type Effective Dates Data Source(s) E78.2 509943701 Mixed hyperlipidemia Problem 09/13/2019 12:0 0:00 AM EST eCW1 ([facility]) F17.211 [id number] [facility] 09/13/2019 12:00:00 AM EST eCW1 ([facility]) E78.2 [id number] Mixed hyperlipidemia Problem 09/13/2019 12:0 0:00 AM EST eCW1 ([facility]) F17.211 [id number] [facility] Problem 09/13/2019 12:00:00 AM EST eCW1 ([facility]) Surgeries/Procedures Procedure Description Date Indications Data Source(s) Office Visit, Est Pt., Level 3 FC 09/13/2019 12:00:00 AM EST eCW1 ([facility]) Office Visit, Est Pt., Level 4 PC 09/13/2019 12:00:00 AM EST eCW1 ([facility]) RIV4 VACC RECOMBINANT DNA IM 09/13/2019 12:00:00 AM ES T eCW1 ([facility]) Administration of influenza virus vaccine 09/13/2019 1 2:00:00 AM EST eCW1 ([facility]) Injection, denosumab, 1 mg 09/13/2019 12:00:00 AM EST eCW1 ([facility]) THER/PROPH/DIAG INJ, SC/IM 09/13/2019 12:00:00 AM EST eCW1 ([facility]) Results ID Date Data Source VITAMIN D 25-HYDROXY 09/13/2019 12:00:00 AM EST eCW1 ([facility]) Name Value Range Interpretation Code Description Data Rosnaa rce(s) Supporting Document(s) 51.7 30.0-100.0 TOTAL 25(OH) VITAMIN D eC W1 ([facility]) ID Date Data Source PHOSPHOROUS LEVEL 09/13/2019 12:00:00 AM EST eCW1 ([facility]) Name Value Range Interpretation Code Description Data Rosana rce(s) Supporting Document(s) 3.5 2.5-4.9 PHOSPHORUS LEVEL eCW1 ([facility]) ID Date Data Source MAGNESIUM LEVEL 09/13/2019 12:00:00 AM EST eCW1 ([facility]) Name Value Range Interpretation Code Description Data Rosana rce(s) Supporting Document(s) 2.2 1.8-2.4 MAGNESIUM LEVEL eCW1 ([facility]) ID Date Data Source Basic Metabolic Profile (BMP) 09/13/2019 12:00:00 AM EST eCW 1 ([facility]) Name Value Range Interpretation Code Description Data Rosana rce(s) Supporting Document(s) 94 70-100 GLUCOSE, FASTING eCW1 ([facility]) > 60.0 >45 GLOMERULAR FILTRATION RATE eCW 1 ([facility]) 0.82 0.55-1.30 CREATININE FOR GFR eCW1 ([facility]) 8 7-18 BLOOD UREA NITROGEN eCW1 ([facility]) 104 98-107 CHLORIDE LEVEL eCW1 ([facility]) 140 136-145 SODIUM LEVEL eCW1 ([facility]) 29 21-32 CARBON DIOXIDE LEVEL eCW1 ([facility]) 4.1 3.5-5.1 POTASSIUM SERUM eCW1 ([facility]) 9.8 8.8-10.2 CALCIUM LEVEL eCW1 ([facility]) Procedure Social History Code Duration Value Status Description Data Source(s ) Smoking 09/13/2019 12:00:00 AM EST Former Smoker completed Former Smoker eCW1 ([facility]) Vital Signs ID Date Data Source UNK Name Value Range Interpretation Code Description Data Source(s) Body weight 49.896 kg 49.896 kg [facility] ([facility], ) Body mass index (BMI) [Ratio] 20.1 kg/m2 20.1 k g/m2 [facility] ([facility]) Body weight 110.00 [lb_av] 110.00 [lb_av] MEDEN T ([facility], ) Body height 62 [in_i] 62 [in_i] MEDENT ([facility], ) 5'2" Oxygen saturation in Arterial blood by Pulse oximetry 100 % 100 % [facility] ([facility], ) Room Air Heart rate 117 /min 117 /min MEDENT ([facility], ) Diastolic blood pressure 82 mm[Hg] 82 mm[Hg] MEDENT ([facility], ) Systolic blood pressure 134 mm[Hg] 134 mm[Hg] M EDENT ([facility], ) Diastolic blood pressure 80 mm[Hg] 80 mm[Hg] eCW1 ([facility]) Systolic blood pressure 140 mm[Hg] 140 mm[Hg] e CW1 ([facility]) Body temperature 98 [degF] 98 [degF] eCW1 ([facility]) Respiratory rate 18 /min 18 /min eCW1 ([facility]) Heart rate 93 /min 93 /min eCW1 ([facility]) Body mass index (BMI) [Ratio] 20.43 kg/m2 20.43 kg/m2 eCW1 ([facility]) Body height [in_us] eCW1 ([facility]) Body weight Measured 109 [lb_av] 109 [lb_av] eC W1 ([facility])
[2020-11-03] MEDS ORDERED: THERTAB52 PO (11:11)
[2020-11-03] MEDS ORDERED: SPIR12.9 INH (11:11)
[2020-11-03] MEDS ORDERED: ALBU8.5H (11:11)
[2020-11-03] MEDS ORDERED: ATOR1TAB21 PO (11:11)
--- NOTE | 2020-11-03 11:41 | REP ---
INDICATION: pain and swelling to thumb after fall. COMPARISON: None. TECHNIQUE: Four views. FINDINGS: Fiberglass splint material overlies the thumb and somewhat decreases sensitivity of the examination. There is a small ossific density along the volar aspect of the IP joint of the thumb that could be a small avulsion. No displaced fracture of the phalanges or thumb metacarpal. There accessory ossicles at the MCP joint. Adjacent bones show no acute fractures. There is an old avulsion off the dorsal aspect DIP joint 2nd digit. IMPRESSION: Small ossific density at the volar aspect IP joint of the thumb that could be acute or old avulsion. Overlying fiberglass cast material somewhat limits the examination. No displaced fracture. No visible foreign body. <Electronically signed by Marlo Basilio > 11/03/20 [id number]
[2020-11-03] MEDS ORDERED: KETOROLAC TROMETHAMINE 10 MG TAB PO ONE (11:45)
--- OUTSIDE RECORDS SUMMARY | 2020-11-03 13:49 | CCD ---
Author Author [facility] Organization [facility] Address Unknown Phone Unavailable Care Team Providers Care Social Services Designee Name Role Phone Sarwat Qiu MD Unavailable Unavailable Sarwat Qiu [...] is protected by Article 27-F of the [facility] Public Health law. If you continue you may have access to information: Regarding HIV / AIDS; Provided by facilities licensed or operated by the [facility] Office of Mental Health; or Provided by the [facility] Office for People With Developmental Disabilities. If such information is present, then the following [facility] mandated warning applies: This information has been [...] law may result in a fine or intermediate sentence or both. A general authorization for the release of medical or other information is NOT sufficient authorization for further disc losure. Family History Family Member Name Family Member Gender Family Member Status Date o f Status Description Data Source(s) Unknown Unknown Problem MEDENT ([facility], ) Unknown Male Problem MEDENT ([facility] () Unknown Female Problem MEDENT ([facility]) Encounters Encounter Providers Location Date Indications Data Source(s ) Unknown [address] [facility] [address] 10/08/2020 12:00:00 AM EST eCW1 ([facility]) [address] [place] [address] 03/15/2020 12:00:00 AM EDT eCW1 ([facility]) [address] [place] [address] 11/23/2019 12:00:00 AM EDT eCW1 ([facility]) Outpatient Referrer: Mehdi Qiu MD 10/07/2019 02:30:0 0 PM EST [facility] [address] [address] 09/13/2019 12:00:00 AM EST eCW1 ([facility]) Immunizations Vaccine Date Status Description Data Source(s) INFLUENZA VACCINE QUADRIVALENT (65 YR UP)/MF59 C.1/PF 07/18/2020 12:00:00 AM EST completed [facility] Prolia 60mg/1mL (Denosumab) 09/13/2019 02:21:00 PM EST completed eCW1 ([facility]) Prolia 60mg/1mL (Denosumab) 09/13/2019 02:21:00 PM EST completed eCW1 ([facility]) influenza, recombinant, quadrIvalent,injectable, prese rvative free 09/13/2019 02:20:00 PM EST completed [facility] influenza, recombinant, quadrIvalent,injectable, prese rvative free 09/13/2019 02:20:00 PM EST completed [facility]CW[facility] Medications Medication Brand Name Start Date Product [...] type / Coverage type Policy ID Covered libertarian ID Covered libertarian's relationship to rose Policy Rose Plan Information [facility] [id number] SP [id number] MEDICARE [id number] SP [id number] [facility] [id number] SP [id number] [facility] [id number] [facility] [id number] SP [id number] MEDICARE C [id number] S [id number] [facility] O [id number] S [id number] ANSI-Commercial [id number] ANSI-Medicare Part B [id number] [facility] B [id number] Self [id number] [place] Medicare Primary [id number] Self [id number] ANSI-Medicare Part B [id number] ANSI-Commercial [id number] [facility] Part B [id number] Self [id number] [place] Medicare Primary [id number] Self [id number] ANSI-Commercial [id number] ANSI-Medicare Part B [id number] ANSI-Commercial [id number] ANSI-Medicare Part B [id number] [employer] DIV [id number] SP [id number] ANSI-Commercial [id number] [facility] Health Maintenance Organization (HMO) [id number] Self [id number] [employer] DIV [id number] SP [id number] [employer] Health Maintenance Organization (HMO) [id number] Self [id number] [employer] Health Maintenance Organization (HMO) [id number] Self [id number] EMPIR ([facility] O [id number] S [id number] [facility] [employer] Health Maintenance Organization (HMO) [id number] Self [id number] [facility] [employer] Maintenance Organization (HMO) [id number] Self [id number] [facility] [id number] SP [id number] [employer] DIV [id number] SP [id number] [facility] [employer] Health Maintenance Organization (HMO) Self [employer] [id number] SP [id number] [employer] DIV [id number] SP [id number] [employer] [id number] SP [id number] [employer] DIV [id number] SP [id number] [facility] O [id number] S [id number] [place] [employer] - OP [id number] Problems, Conditions, and Diagnoses Code Display Name Description Problem Type Effective Dates Data Source(s) E78.2 [id number] Mixed hyperlipidemia Problem 09/13/2019 12:0 0:00 AM EST eCW1 ([facility]) F17.211 [id number] [facility] Problem 09/13/2019 12:00:00 AM EST eCW1 ([facility]) E78.2 [id number] Mixed hyperlipidemia Problem 09/13/2019 12:0 0:00 AM EST eCW1 ([facility]) F17.211 [id number] Cigarette nicotine dependence in [facility] n Problem 09/13/2019 12:00:00 AM EST eCW1 ([facility]) Surgeries/Procedures Procedure Description Date Indications Data Source(s) Office Visit, Est Pt., Level 3 FC 09/13/2019 12:00:00 AM EST eCW1 ([facility]) Office Visit, Est Pt., Level 4 PC 09/13/2019 12:00:00 AM EST eCW1 ([facility]) RIV4 VACC RECOMBINANT DNA IM 09/13/2019 12:00:00 AM ES T eCW1 ([facility]) Administration of influenza virus vaccine 09/13/2019 1 2:00:00 AM EST eCW1 ([facility]) Injection, denosumab, 1 mg 09/13/2019 12:00:00 AM EST eCW1 ([facility]) THER/PROPH/DIAG INJ, SC/IM 09/13/2019 12:00:00 AM EST eCW1 ([facility]) Results ID Date Data Source VITAMIN D 25-HYDROXY 09/13/2019 12:00:00 AM EST eCW1 ([facility]) Name Value Range Interpretation Code Description Data Rosana rce(s) Supporting Document(s) 51.7 30.0-100.0 TOTAL 25(OH) VITAMIN D eC W1 ([facility]) ID Date Data Source PHOSPHOROUS LEVEL 09/13/2019 12:00:00 AM EST eCW1 ([facility]) Name Value Range Interpretation Code Description Data Rosana rce(s) Supporting Document(s) 3.5 2.5-4.9 PHOSPHORUS LEVEL eCW1 ([facility]) ID Date Data Source MAGNESIUM LEVEL 09/13/2019 12:00:00 AM EST eCW1 ([facility]) Name Value Range Interpretation Code Description Data Rosana rce(s) Supporting Document(s) 2.2 1.8-2.4 MAGNESIUM LEVEL eCW1 ([facility]) ID Date Data Source Basic Metabolic Profile (BMP) 09/13/2019 12:00:00 AM EST eCW 1 ([facility]) Name Value Range Interpretation Code Description Data Rosana rce(s) Supporting Document(s) 94 70-100 GLUCOSE, FASTING eCW1 ([facility]) > 60.0 >45 GLOMERULAR FILTRATION RATE eCW 1 ([facility]) 0.82 0.55-1.30 CREATININE FOR GFR eCW1 ([facility]) 8 7-18 BLOOD UREA NITROGEN eCW1 ([facility]) 104 98-107 CHLORIDE LEVEL eCW1 ([facility]) 140 136-145 SODIUM LEVEL eCW1 ([facility]) 29 21-32 CARBON DIOXIDE LEVEL eCW1 ([facility]) 4.1 3.5-5.1 POTASSIUM SERUM eCW1 ([facility]) 9.8 8.8-10.2 CALCIUM LEVEL eCW1 ([facility]) Procedure Social History Code Duration Value Status Description Data Source(s ) Smoking 09/13/2019 12:00:00 AM EST Former Smoker completed Former Smoker eCW1 ([facility]) Vital Signs ID Date Data Source UNK Name Value Range Interpretation Code Description Data Source(s) Body weight 49.896 kg 49.896 kg [facility] ([facility], ) Body mass index (BMI) [Ratio] 20.1 kg/m2 20.1 k g/m2 [facility] Body weight 110.00 [lb_av] 110.00 [lb_av] MEDEN T ([facility], ) Body height 62 [in_i] 62 [in_i] MEDENT ([facility], ) 5'2" Oxygen saturation in Arterial blood by Pulse oximetry 100 % 100 % [facility], ) Room Air Heart rate 117 /min 117 /min MEDENT ([facility], ) Diastolic blood pressure 82 mm[Hg] 82 mm[Hg] MEDENT ([facility], ) Systolic blood pressure 134 mm[Hg] 134 mm[Hg] M EDENT ([facility], ) Diastolic blood pressure 80 mm[Hg] 80 mm[Hg] eCW1 ([facility]) Systolic blood pressure 140 mm[Hg] 140 mm[Hg] e CW1 ([facility]) Body temperature 98 [degF] 98 [degF] eCW1 ([facility]) Respiratory rate 18 /min 18 /min eCW1 ([facility]) Heart rate 93 /min 93 /min eCW1 ([facility]) Body mass index (BMI) [Ratio] 20.43 kg/m2 20.43 kg/m2 eCW1 ([facility]) Body height [in_us] eCW1 ([facility]) Body weight Measured 109 [lb_av] 109 [lb_av] eC W1 ([facility])
== END 2020-11-03 12:12 | disposition home or self-care (01) ==
LOC: M ED 11:04
DX: S62.501A Fracture of unspecified phalanx of right thumb, initial encounter for closed fracture (principal); W19.XXXA Unspecified fall, initial encounter; Y92.099 Unspecified place in other non-institutional residence as the place of occurrence of the external cause; Y93.9 Activity, unspecified; Y99.9 Unspecified external cause status; J44.9 Chronic obstructive pulmonary disease, unspecified; E78.5 Hyperlipidemia, unspecified; M81.0 Age-related osteoporosis without current pathological fracture; F17.200 Nicotine dependence, unspecified, uncomplicated; Z79.899 Other long term (current) drug therapy

== ENCOUNTER → 2020-11-27 | Outpatient (REF) | payer MEDICARE, OTHER ==
[~2020-11-27] MED LIST changes: +ALBU8.5H; +ATOR1TAB21 PO; +SPIR12.9 INH; +THERTAB52 PO
[2020-11-27 17:47] LABS: BLOOD UREA NITROGEN 10 MG/DL (7-18); CALCIUM LEVEL 10.4 MG/DL (8.8-10.2); CARBON DIOXIDE LEVEL 30 MEQ/L (21-32); CHLORIDE LEVEL 108 MEQ/L (98-107); CREATININE FOR GFR 0.79 MG/DL (0.55-1.30); GLOMERULAR FILTRATION RATE > 60.0 (>45); GLUCOSE, FASTING 114 MG/DL (70-100); MAGNESIUM LEVEL 2.2 MG/DL (1.8-2.4); PHOSPHORUS LEVEL 4.9 MG/DL (2.5-4.9); POTASSIUM SERUM 4.9 MEQ/L (3.5-5.1); SODIUM LEVEL 141 MEQ/L (136-145); TOTAL 25(OH) VITAMIN D 46.2 NG/ML (30.0-100.0)
== END ==
LOC: M SFHCPLAZ 15:09
PROVIDERS: ATTEND Family Medicine
DX: M81.0 Age-related osteoporosis without current pathological fracture (principal)
CPT/HCPCS: 36415; 80048; 82306; 83735; 84100; 96372; G0463; J0897

== ENCOUNTER → 2020-12-06 | Outpatient (REF) | payer MEDICARE, OTHER ==
[2020-12-06 17:57] LABS: BLOOD UREA NITROGEN 10 MG/DL (7-18); CALCIUM LEVEL 9.1 MG/DL (8.8-10.2); CARBON DIOXIDE LEVEL 28 MEQ/L (21-32); CHLORIDE LEVEL 108 MEQ/L (98-107); CREATININE FOR GFR 0.77 MG/DL (0.55-1.30); GLOMERULAR FILTRATION RATE > 60.0 (>45); GLUCOSE, FASTING 90 MG/DL (70-100); POTASSIUM SERUM 4.4 MEQ/L (3.5-5.1); SODIUM LEVEL 142 MEQ/L (136-145)
[2020-12-06 18:09] LABS: PTH INTACT 80.3 PG/ML (18.5-88.0)
== END ==
LOC: M PLALAB 16:43
PROVIDERS: ATTEND Family Medicine
DX: E83.52 Hypercalcemia (principal)

== ENCOUNTER → 2021-01-25 | Outpatient (CLI) | payer MEDICARE, BC, OTHER ==
--- NOTE | 2021-01-28 08:49 | ECHO ---
DATE OF PROCEDURE: 01/25/2021 Age: 65 Gender: Female Height: 154 cm Weight: 49 kg REFERRING PHYSICIAN: Shantelle Madera MD. INDICATION: Abnormal EKG. MEASUREMENTS: IVS 0.9 cm LV 3.6 cm LVPW 0.8 cm LA 3.8 cm Aorta 2.6 cm RV 4.5 cm in apical four chamber views at the base IVC 1.8 cm Mitral E wave velocity 70 cm/s Mitral A wave 42 cm/s E prime septal 8.6 cm/s E prime lateral 7.4 cm/s FINDINGS: This study is of good technical quality. The patient is in sinus rhythm with frequent atrial ectopy. Left ventricle is normal size and has normal systolic function, I estimate LVEF 70% to 75%. The right ventricle is dilated and hypokinetic. The left atrium appears normal. Right atrium is severely dilated. Aortic valve is mildly sclerotic, but mobility of cusps is preserved. There are also minimal degenerative abnormalities of mitral valve, but mobility of leaflets is preserved. Tricuspid and pulmonic valves appear normal. No pericardial effusion is noted. Inferior vena cava is in the upper limits of normal size and collapses with inspiration indicative of likely normal central venous pressure. The aortic root appears normal. Aortic arch was not well seen. There is an atherosclerosis apparent in the abdominal aorta. Doppler interrogation of the aortic valve reveals no stenosis and trace insufficiency. There is also trace mitral and moderate tricuspid insufficiency. Calculated pulmonary artery pressure is in the 40s corresponding to moderate pulmonary hypertension. Mitral inflow pattern and tissue Doppler imaging of the mitral annulus revealed probable normal diastolic function, even though tissue Doppler velocities of the mitral annulus are mildly reduced. CONCLUSIONS: 1. Study is of acceptable technical quality, underlying sinus rhythm with atrial ectopy. 2. Normal LV size with hyperdynamic LV systolic function and probably normal diastolic function. 3. No hemodynamically significant aortic and mitral valvular disease. 4. Moderate tricuspid insufficiency. 5. Dilated hypokinetic right ventricle. 6. Probably normal central venous pressure, but at least moderate pulmonary hypertension. 7. Atherosclerosis is apparent in the abdominal aorta. MTDD
== END ==
LOC: M CARPUL 14:11
PROVIDERS: ATTEND Family Medicine
DX: R94.31 Abnormal electrocardiogram [ECG] [EKG] (principal)

== ENCOUNTER → 2021-04-23 | Outpatient (CLI) | payer MEDICARE, BC, OTHER ==
--- NOTE | 2021-04-23 14:44 | DEXAMM ---
INDICATION: AGE RELATED OSTEOPOROSIS W/O CURRENT PATHOLOGICAL FRACTURE. COMPARISON: None. TECHNIQUE: Bone density was measured using dual-energy x-ray absorptionmetry (DEXA). FINDINGS: AP SPINE L1-L4 BMD 0.963 g/cm2 Young Adult T-Score -1.9 Age Matched Z-Score -0.3. LT FEMUR, TOTAL BMD 0.794 g/cm2 Young Adult T-Score -1.7 Age Matched Z-Score -0.5. LT NECK BMD 0.770 g/cm2 Young Adult T-Score -1.9 Age Matched Z-Score -0.5. RT FEMUR, TOTAL BMD 0.742 g/cm2 Young Adult T-Score -2.1 Age Matched Z-Score -0.9. RT NECK BMD 0.680 g/cm2 Young Adult T-Score -2.6 Age Matched Z-Score -1.1. IMPRESSION: There is low bone density of the spine. There is low bone density of the left hip. There is low bone density of the right hip. FOLLOW-UP: Recommendation for the next bone density exam: 2 years. <Electronically signed by Rakan Frank > 04/23/21 [id number]
== END ==
LOC: M WHC 11:37
PROVIDERS: ATTEND Family Medicine
DX: M81.0 Age-related osteoporosis without current pathological fracture (principal)

== ENCOUNTER → 2021-06-04 | Outpatient (CLI) | payer MEDICARE, BC, OTHER ==
--- NOTE | 2021-06-04 14:12 | REP ---
INDICATION: Assess stenosis COMPARISON: None TECHNIQUE: Carotid ultrasonography was performed bilaterally FINDINGS: Right: CCA systolic 81.8 centimeters/second: CCA diastolic: 19.5 centimeters/second ICA systolic: 82.7 centimeters/second ICA diastolic: 19.9 centimeters/second ICA CCA ratio: 0.99 Left: CCA systolic: 113.5 centimeters/second CCA diastolic: 21.2 centimeters/second ICA systolic: 73.6 centimeters/second ICA diastolic: 23.7 centimeters/second ICA CCA ratio: 0.65 Vertebral artery: Right: Antegrade flow left: Antegrade flow Patchy and linear echogenic material seen along the carotid arterial haile in a moderate amount and some of which casts and acoustic shadow consistent with calcific deposition. IMPRESSION: According to the SRU criteria there is less than 50% stenosis of the internal carotid artery bilaterally. This is secondary to both calcified and noncalcified atheromatous plaque formation. <Electronically signed by Pete Bhat > 06/04/21 [id number]
== END ==
LOC: M RAD 13:37
PROVIDERS: ATTEND Internal Medicine Cardiovascular Disease
DX: R09.89 Other specified symptoms and signs involving the circulatory and respiratory systems (principal); I65.23 Occlusion and stenosis of bilateral carotid arteries

== ENCOUNTER → 2021-06-19 | Outpatient (CLI) | payer MEDICARE, BC, OTHER ==
[2021-06-19 10:38] LABS: HEMOGLOBIN A1c 5.3 %
[2021-06-19 12:21] LABS: BLOOD UREA NITROGEN 11 MG/DL (7-18); CALCIUM LEVEL 9.3 MG/DL (8.8-10.2); CARBON DIOXIDE LEVEL 29 MEQ/L (21-32); CHLORIDE LEVEL 107 MEQ/L (98-107); CHOLESTEROL LEVEL 172 MG/DL (<200); CHOLESTEROL RISK RATIO 2.646 (<5); CREATININE FOR GFR 0.72 MG/DL (0.55-1.30); GLOMERULAR FILTRATION RATE > 60.0 (>45); GLUCOSE, FASTING 92 MG/DL (70-100); HDL CHOLESTEROL 65 MG/DL (>40); LDL CHOLESTEROL 95 MG/DL (<100); NON-HDL-C 107 MG/DL; PHOSPHORUS LEVEL 4.8 MG/DL (2.5-4.9); POTASSIUM SERUM 4.6 MEQ/L (3.5-5.1); SODIUM LEVEL 140 MEQ/L (136-145); TOTAL 25(OH) VITAMIN D 25.4 NG/ML (30.0-100.0); TRIGLYCERIDES LEVEL 58 MG/DL (<150)
== END ==
LOC: M PLALAB 09:03
PROVIDERS: ATTEND Family Medicine
DX: M81.0 Age-related osteoporosis without current pathological fracture (principal); Z13.1 Encounter for screening for diabetes mellitus; E78.2 Mixed hyperlipidemia; E55.9 Vitamin D deficiency, unspecified

== ENCOUNTER → 2021-10-28 | Outpatient (CLI) | payer MEDICARE, BC, OTHER | LOC: M RAD 14:31 | PROVIDERS: ATTEND Internal Medicine Pulmonary Disease | DX: Z12.2 Encounter for screening for malignant neoplasm of respiratory organs (principal); F17.218 Nicotine dependence, cigarettes, with other nicotine-induced disorders; R91.8 Other nonspecific abnormal finding of lung field ==

== ENCOUNTER → 2021-12-10 | Outpatient (CLI) | payer MEDICARE, BC, OTHER ==
[2021-12-10 13:39] LABS: BLOOD UREA NITROGEN 10 MG/DL (7-18); CALCIUM LEVEL 9.7 MG/DL (8.8-10.2); CARBON DIOXIDE LEVEL 31 MEQ/L (21-32); CHLORIDE LEVEL 106 MEQ/L (98-107); CREATININE FOR GFR 0.84 MG/DL (0.55-1.30); GLOMERULAR FILTRATION RATE > 60.0 (>45); GLUCOSE, FASTING 98 MG/DL (70-100); MAGNESIUM LEVEL 2.2 MG/DL (1.8-2.4); PHOSPHORUS LEVEL 4.1 MG/DL (2.5-4.9); POTASSIUM SERUM 4.7 MEQ/L (3.5-5.1); SODIUM LEVEL 142 MEQ/L (136-145)
[2021-12-10 13:47] LABS: TOTAL 25(OH) VITAMIN D 19.4 NG/ML (30.0-100.0)
== END ==
LOC: M PLALAB 10:44
PROVIDERS: ATTEND Family Medicine
DX: M81.0 Age-related osteoporosis without current pathological fracture (principal); E55.9 Vitamin D deficiency, unspecified

== ENCOUNTER → 2021-12-16 | Outpatient (CLI) | payer MEDICARE, BC, OTHER | LOC: M PLALAB 10:52 | PROVIDERS: ATTEND Physician Assistant | DX: R06.02 Shortness of breath (principal) ==